=== PATIENT | female | born 1955 | race African-American/Black ===

== ENCOUNTER 2022-03-22 10:20 | Outpatient (CLI) | payer MEDICARE, SELFPAY ==
[2022-03-22 12:26] LABS: Phosphorus 3.7 mg/dL (2.5-4.5)
[2022-03-22 12:32] LABS: Immunoglobulin A 526 mg/dL (70-400); Immunoglobulin G 2375 mg/dL (700-1600); Immunoglobulin M 53 mg/dL (40-230)
[2022-03-25 08:18] LABS: Albumin 3.9 g/dL (3.8-4.8); Alpha 1 Globulin 0.3 g/dL (0.2-0.3); Alpha 2 Globulin 0.8 g/dL (0.5-0.9); Beta 1 Globulin 0.5 g/dL (0.4-0.6); Gamma Globulin 2.1 g/dL (0.8-1.7); Protein, Total 8.2 g/dL (6.1-8.1)
[2022-03-26 16:15] LABS: Kappa\\Lambda Light Chains 1.93 (0.26-1.65); Lambda Light Chain 28.3 mg/L (5.7-26.3)
== END 2022-03-22 10:21 | disposition home or self-care (01) ==
PROVIDERS: PCP Internal Medicine; Visit Provider Internal Medicine Endocrinology, Diabetes & Metabolism
DX: E83.52 Hypercalcemia (principal)
CPT/HCPCS: 36415; 82784; 83883; 83970; 84100; 84155; 84165; 86334

== ENCOUNTER 2022-04-04 14:51 | Outpatient (CLI) | payer MEDICARE, SELFPAY ==
--- NOTE | ~2022-04-04 | US_ITS ---
Duplex Sonography of the left extremity: Indication: Swelling Sagittal and transverse B-mode images as well as color-flow imaging were performed on the left femora l and popliteal veins. B-mode examination was done without and with compression in the transverse pl ane. There is good visualization of the common femoral, proximal profunda femoral, superficial femor al, greater saphenous, and popliteal veins. Normal flow was seen on color-flow imaging. Normal compr essibility was demonstrated. Posterior tibial, peroneal, and gastrocnemius veins in the calf are also patent, with normal flow. The contralateral common femoral vein was evaluated for comparison, and demonstrated normal flow and compressibility. Impression: No DVT identified in the left lower extremity. Reviewed, dictated and finalized at location [] TENDER Impression: No DVT identified in the left lower extremity.
== END 2022-04-04 14:52 | disposition home or self-care (01) ==
PROVIDERS: PCP Internal Medicine; Visit Provider Physician Assistant Surgical
DX: R22.42 Localized swelling, mass and lump, left lower limb (principal)
CPT/HCPCS: 93971

== ENCOUNTER 2022-05-29 08:51 | Outpatient (CLI) | payer MEDICARE, SELFPAY ==
--- NOTE | ~2022-05-29 | US_ITS ---
EXAMINATION: US art doppler w press LE BI DATE: 05/29/2022 10:37 INDICATION: Peripheral vascular disease. TECHNIQUE: Segmental pressures and plethysmographic and Doppler waveforms of the brachial and lower e xtremity arteries were obtained. COMPARISON: Chest CT 05/31/2017 FINDINGS: Right and left brachial artery pressures of 195 mm Hg and 163 mm Hg, respectively, are discordant (no rmal difference <= 30 mmHg). The right low thigh pressure index is 1.06. The right ankle-brachial index (ALTAGRACIA) is 0.96 (normal >= 0 .9-1.0). The right great toe-brachial index (TBI) is 0.40 (normal >= 0.65). Arterial Doppler wavefor ms are biphasic in common femoral artery and superficial femoral artery, triphasic in popliteal arter y, and biphasic at the ankle. The left high-thigh pressure index is 0.89. The left below-knee pressure index is 0.72. The left ALTAGRACIA could not be measured due to bandages. The left TBI is 0.43. The left lower extremity segmental press ure gradients are increased between the above-knee and below-knee measurements. Arterial Doppler wave forms are biphasic from common femoral artery to the ankle. IMPRESSION: 1. Discordant brachial artery pressures, left lower than right, suspicious for stenosis or occlusion of left subclavian artery. Consider chest CTA. 2. Mildly decreased right ALTAGRACIA, nondiagnostic left ALTAGRACIA, and decreased bilateral TBIs, consistent with arterial occlusive disease. Pressure gradients suggest arterial occlusive disease at least in the lef t iliofemoral and left popliteal distributions. Reviewed, dictated and finalized at location A. 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 Discordant brachial artery pressures, left lower than right, suspicious for stenosis or occlusion of left subclavian artery. Consider chest CTA. 2. Mildly decreased right ALTAGRACIA, nondiagnostic left ALTAGRACIA, and decreased bilateral TBIs, consistent with arterial occlusive disease. Pressure gradients suggest ar terial occlusive disease at least in the left iliofemoral and left popliteal di stributions.
== END 2022-05-29 08:52 | disposition home or self-care (01) ==
PROVIDERS: PCP Internal Medicine; Visit Provider Podiatrist Foot & Ankle Surgery
DX: I73.9 Peripheral vascular disease, unspecified (principal)
CPT/HCPCS: 93923

== ENCOUNTER 2023-03-27 10:34 | Outpatient (CLI) | payer MEDICARE, SELFPAY ==
[2023-03-27 16:39] LABS: Hematocrit 44.7 % (37.0-47.0); Mean Corpuscular HGB Conc 31.3 g/dl (32-36); Mean Corpuscular Hemoglobin 29.4 pg (26-34); Mean Corpuscular Volume 93.9 fl (80-100); Mean Platelet Volume 11.7 fl (7.4-10.4); Platelet Count Result 250 k/mm3 (150-375); Red Blood Count 4.76 M/mm3 (4.2-5.4); Red Cell Distribution Width 13.6 % (11.5-14.5); White Blood Count 7.5 K/mm3 (4.5-10.0)
[2023-03-27 17:17] LABS: Free T4 Free Thyroxine 0.44 ng/mL (0.78-2.19); Vitamin D 25 Hydroxy 35.1 ng/mL
[2023-03-27 17:18] LABS: Alanine Aminotransferase 24 U/L (6-35); Albumin Level 4.2 g/dL (3.5-5.1); Alkaline Phosphatase 83 U/L (38-126); Anion Gap 8 mmol/L (8-16); Aspartate Amino Transferase 47 U/L (14-36); Bilirubin,Total 0.5 mg/dL (0.2-1.3); Blood Urea Nitrogen 10 mg/dL (7-17); Calcium 9.6 mg/dL (8.4-10.2); Carbon Dioxide 28 mmol/L (22-30); Chloride 100 mmol/L (98-107); Cholesterol 188 mg/dL (0-200); Estimated Glomerular Filt Rate > 60; Glucose 160 mg/dL (65-110); HDL Direct 33 mg/dL; Phosphorus 3.6 mg/dL (2.5-4.5); Sodium 136 mmol/L (137-145); Triglycerides 97 mg/dL (<150)
[2023-03-27 17:19] LABS: Creatinine Urine 134.9 mg/dL
[2023-03-27 17:24] LABS: MALB Creatinine Ratio 28.1 mg/g (0-30); Microalbumin Urine Random 37.9 mg/L (0-16.7)
[2023-03-27 17:36] LABS: LDL Cholesterol Direct 115 mg/dL
[2023-03-29 14:25] LABS: Thyroid Stimulating Immunoglob 152 % baseline (<140)
[2023-03-30 05:14] LABS: Thyroid Peroxidase Antibodies 1 IU/mL (<9)
[2023-03-30 13:25] LABS: Thyrotropin Receptor Antibody <1.00 IU/L (<=2.00)
== END 2023-03-27 10:35 | disposition home or self-care (01) ==
LOC: ANHWCLAB 10:36
PROVIDERS: PCP Internal Medicine; Visit Provider Internal Medicine
DX: E11.9 Type 2 diabetes mellitus without complications (principal); E03.9 Hypothyroidism, unspecified; Z92.3 Personal history of irradiation; E55.9 Vitamin D deficiency, unspecified
CPT/HCPCS: 36415; 80053; 80061; 82043; 82306; 82607; 83519; 83735; 83970; 84100; 84439; 84443; 84445; 85027; 86376